=== PATIENT | male | born 1960 | race Caucasian/White ===

== ENCOUNTER 2021-04-12 06:20 | Day surgery (SDC) | payer OTHER ==
[~2021-04-12] VITALS: Ht 180.3 cm; Wt 85.4 kg
[~2021-04-12 06:20] MED LIST: CHANTIX1 MG PO; LISI5 PO; LUMIGAN2.5 ML BOTHEYES; NAPR220 PO; SERT100 PO; Viagra100 MG; Xanax0.5 MG PO
--- NOTE | 2021-04-12 06:38 | NUR ---
04/12/21 0638 Juan C Mathew TETRACAINE APPLIED TO LEFT EYE PER ORDERS AT [phone] AND PLEDGET APPLIED AT [id number]
[2021-04-25] MEDS ORDERED: LISI5 (10:03)
== END 2021-04-12 08:07 | disposition home or self-care (01) ==
LOC: ORSCSDS 06:20
PROVIDERS: Ophthalmology
PROC: 08RK3JZ Replacement of Left Lens with Synthetic Substitute, Percutaneous Approach (ICD-10-PCS; principal; 2021-04-12 07:30)
DX: H25.12 Age-related nuclear cataract, left eye (principal); I10 Essential (primary) hypertension; F17.210 Nicotine dependence, cigarettes, uncomplicated; Z79.899 Other long term (current) drug therapy
CPT/HCPCS: J2001; J2250; J3010; J3301; J7040; V2632

== ENCOUNTER 2021-05-03 06:18 | Day surgery (SDC) | payer OTHER ==
[~2021-05-03] VITALS: Ht 180.3 cm; Wt 86.0 kg
[~2021-05-03 06:18] MED LIST changes: +LISI5
[2021-05-03] MEDS ORDERED: TIZA4 (06:28)
[2021-05-03] MEDS ORDERED: SERT25 (06:28)
[2021-05-03] MEDS ORDERED: BENADRYL25 MG (06:29)
--- NOTE | 2021-05-03 07:05 | NUR ---
05/03/21 0705 Debbie Bustamante TETRACAINE AND PLEDGET PLACED IN RIGHT EYE BY [facility]
== END 2021-05-03 08:06 | disposition home or self-care (01) ==
LOC: ORSCSDS 06:18
PROVIDERS: Ophthalmology
PROC: 08RJ3JZ Replacement of Right Lens with Synthetic Substitute, Percutaneous Approach (ICD-10-PCS; principal; 2021-05-03 07:30)
DX: H25.11 Age-related nuclear cataract, right eye (principal); I10 Essential (primary) hypertension; Z87.891 Personal history of nicotine dependence; Z79.899 Other long term (current) drug therapy
CPT/HCPCS: J2001; J2250; J3010; J3301; J7040; V2632